=== PATIENT | male | born 1950 | race African-American/Black ===

== ENCOUNTER 2022-12-04 13:53 | Emergency (ER) | payer OTHER ==
[~2022-12-04] VITALS: Ht 185.4 cm; Wt 82.0 kg
[2022-12-04 13:56] VITALS: TEMP 98.9; O2SAT 100
[2022-12-04] MEDS ORDERED: T3 PO (15:48)
[2022-12-04 16:00] VITALS: BP 124/69; PULSE 82; RESP 18
[2022-12-04] MEDS ORDERED: HYDROCODONE/ACETAMINOPHEN 5/325MG TABLET PO ONE (16:00)
== END 2022-12-04 17:06 | disposition home or self-care (01) ==
LOC: ER 13:53
DX: S62.102A Fracture of unspecified carpal bone, left wrist, initial encounter for closed fracture (principal); R51.9 Headache, unspecified; V29.99XA Rider (driver) (passenger) of other motorcycle injured in unspecified traffic accident, initial encounter; Y93.89 Activity, other specified; Y92.89 Other specified places as the place of occurrence of the external cause; Y99.8 Other external cause status
CPT/HCPCS: 29125; 73110; 99284